=== PATIENT | female | born 1955 | race Caucasian/White ===

== ENCOUNTER 2017-11-04 20:35 | Emergency (ER) | payer MEDICAID ==
[2017-11-04 21:23] LABS: SQUAMOUS EPITHIAL 4 /hpf (0-5); URINE BACTERIA MOD (<OCC); URINE BILIRUBIN NEGATIVE (NEGATIVE); URINE BLOOD NEGATIVE (NEGATIVE); URINE CLARITY Hazy (Clear); URINE COLOR Yellow (YELLOW); URINE GLUCOSE (UA) 2+ mg/dL (Normal); URINE LEUKOCYTE ESTERASE 3+ Leu/uL (Negative); URINE NITRATE NEGATIVE (NEGATIVE); URINE PROTEIN NEGATIVE (NEGATIVE); URINE UROBILINOGEN NORMAL mg/dL (0.2-1.0)
--- NOTE | 2017-11-04 21:36 | C.PDOC ---
History Of Present Illness 62 year old female with a PMHx of diverticulitis, diabetes, HTN and surgical Hx of presents to the ER with daughter with a complaint of lower abdominal pain worse at the LLQ area that has been gradually worsening over the past 4-5 days; associated with an episode of fever yesterday and dysuria. Patient states the pain feels similar to her past exacerbations of diverticulitis and notes her last episode was approximately 2 years ago. Denies nausea, vomiting, or diarrhea. Chief Complaint (Nursing): Abdominal Pain History Per: Patient History/Exam Limitations: no limitations Onset/Duration Of Symptoms: Days Current Symptoms Are (Timing): Still Present Location Of Pain/Discomfort: RLQ, LLQ (Worse), Suprapubic Radiation Of Pain To:: None Quality Of Discomfort: Unable To Describe Associated Symptoms: Urinary Symptoms (Dysuria) Exacerbating Factors: None Alleviating Factors: None Recent travel outside of the [place]: No Past Medical History Reviewed: Historical Data, Nursing Documentation, Vital Signs Vital Signs: Last Vital Signs Temp 98.0 F 11/04/17 22:46 Pulse 85 11/04/17 22:46 Resp 16 11/04/17 22:46 BP 136/89 11/04/17 22:46 Pulse Ox 96 11/04/17 22:46 - Medical History PMH: Diabetes, Diverticulitis, HTN Family History: States: Unknown Family Hx - Social History Hx Tobacco Use: No Hx Alcohol Use: No Hx Substance Use: No - Immunization History Hx Tetanus Toxoid Vaccination: No Hx Influenza Vaccination: No Hx Pneumococcal Vaccination: No Review Of Systems Cardiovascular: Negative for: Chest Pain, Palpitations Respiratory: Negative for: Shortness of Breath Gastrointestinal: Positive for: Abdominal Pain. Negative for: Nausea, Vomiting , Diarrhea Genitourinary: Positive for: Dysuria Physical Exam - Physical Exam Appears: Non-toxic Skin: Normal Color, Warm, Dry Head: Atraumatic, Normacephalic Eye(s): bilateral: Normal Inspection Oral Mucosa: Moist Neck: Normal, Supple Chest: Symmetrical, No Tenderness Cardiovascular: Rhythm Regular Respiratory: Normal Breath Sounds, No Rales, No Rhonchi, No Wheezing Gastrointestinal/Abdominal: Soft, Tenderness (LLQ), No Organomegaly, No Distention, Guarding, No Rebound, No Hernia Neurological/Psych: Oriented x3, Normal Speech ED Course And Treatment - Laboratory Results Result Diagrams: 11/04/17 21:44 11/04/17 21:44 O2 Sat by Pulse Oximetry: 98 (Room air) Pulse Ox Interpretation: Normal Medical Decision Making Medical Decision Making: Impression: Exacerbation of diverticulitis. Will check blood work and urinalysis.We will treat for both conditions with Augmentin Urine positive for UTI. Disposition - Disposition Referrals: [facility] [Outside] Disposition: HOME/ ROUTINE Disposition Time: 00:45 Condition: GOOD Additional Instructions: see PMD in 2 days for reassessment Prescriptions: Amoxicillin/Clavulanate [Augmentin 875 MG-125 MG] 1 tab PO BID #20 tab Phenazopyridine HCl [Pyridium] 100 mg PO TID #6 tablet Instructions: Diverticulitis (ED), Urinary Tract Infection in Women (ED) Forms: Gen Discharge Inst Romanian, [facility] (Anguillan) Print Language: POLISH - Clinical Impression Clinical Impression: Diverticulitis, UTI (urinary tract infection) - Scribe Statement The provider has reviewed the documentation as recorded by the Scribyaneli Cole All medical record entries made by the Lilianaibyaneli were at my direction and personally dictated by me. I have reviewed the chart and agree that the record accurately reflects my personal performance of the history, physical exam, medical decision making, and the department course for this patient. I have also personally directed, reviewed, and agree with the discharge instructions and disposition.
[2017-11-04 21:46] LABS: BASO # 0.1 K/uL (0.0-0.2); BASO % 0.6 % (0.0-2.0); EOS # 0.1 K/uL (0.0-0.7); EOS % 1.2 % (0.0-4.0); HEMOGLOBIN 12.1 g/dL (11.0-16.0); LYMPH # 3.3 K/uL (1.0-4.3); LYMPH % 29.4 % (20.0-40.0); MEAN CORPUSCULAR HEMOGLOBIN 29.7 pg (27.0-31.0); MEAN CORPUSCULAR HGB CONC 34.1 g/dL (33.0-37.0); MEAN PLATELET VOLUME 8.2 fL (7.2-11.7); MONO # 0.8 K/uL (0.0-0.8); MONO % 7.4 % (0.0-10.0); NEUT # 6.9 K/uL (1.8-7.0); NEUT % 61.4 % (50.0-75.0); RBC 4.09 Mil/uL (3.80-5.20); RED CELL DISTRIBUTION WIDTH 13.7 % (11.5-14.5); WHITE BLOOD COUNT 11.2 K/uL (4.8-10.8)
[2017-11-04 21:58] LABS: ALBUMIN 3.7 g/dL (3.5-5.0); BLOOD UREA NITROGEN 14 mg/dL (7-17); GFR AFRICAN-AMERICAN > 60; GFR NON-AFRICAN AMERICAN > 60
[2017-11-04 21:59] LABS: ALB/GLOB RATIO 1.3 (1.0-2.1); ALT/SGPT 12 U/L (9-52); AST/SGOT 13 U/L (14-36)
[2017-11-04 22:47] VITALS: BP 136/89; PULSE 85; RESP 16; TEMP 98
[2017-11-05 00:46] VITALS: O2SAT 98
== END 2017-11-04 22:46 | disposition home or self-care (01) ==
LOC: C.ER 20:35
DX: K57.92 Diverticulitis of intestine, part unspecified, without perforation or abscess without bleeding (principal); N39.0 Urinary tract infection, site not specified; E11.9 Type 2 diabetes mellitus without complications; I10 Essential (primary) hypertension

== ENCOUNTER 2018-11-25 19:06 | Emergency (ER) | payer MEDICAID ==
[2018-11-25 19:07] VITALS: BMI 30.1
[2018-11-25 19:20] VITALS: BP 123/84; PULSE 79; TEMP 98.6; O2SAT 97
--- NOTE | 2018-11-25 20:25 | C.PDOC ---
History Of Present Illness 63 year old female presents to the emergency department with complaints of generalized body aches, cough, fever, chills, headache, sore throat for the last two days. Patient states that she took Advil and Robitussin with no relief of symptoms. Patient denies chest pain and shortness of breath. HPI: Influenza Time Seen by Provider: 11/25/18 19:44 Chief Complaint: Flu-like Symptoms History Per: Patient Exam Limitations: no limitations Onset/Duration Of Symptoms: Days (2) Symptoms include: fever, headache, bodyaches, sore throat, cough. denies: chest pain, difficulty breathing Past Medical History Vital Signs: Last Vital Signs Temp 98.6 F 11/25/18 19:16 Pulse 79 11/25/18 19:16 Resp 18 11/25/18 19:16 BP 123/84 11/25/18 19:16 Pulse Ox 97 11/25/18 19:16 - Medical History PMH: Diabetes, Diverticulitis, HTN Surgical History: No Surg Hx Family History: States: No Known Family Hx - Social History Hx Tobacco Use: No Hx Alcohol Use: No Hx Substance Use: No - Immunization History Hx Tetanus Toxoid Vaccination: No Hx Influenza Vaccination: Yes Hx Pneumococcal Vaccination: No Review Of Systems Except As Marked, All Systems Reviewed And Found Negative. Constitutional: Positive for: Fever, Chills ENT: Positive for: Throat Pain Respiratory: Positive for: Cough Musculoskeletal: Positive for: Other (body aches) Neurological: Positive for: Headache Physical Exam - Physical Exam Appears: Non-toxic, No Acute Distress Skin: Normal Color, Warm, Dry Head: Atraumatic, Normacephalic Eye(s): bilateral: Normal Inspection, PERRL, EOMI Throat: Normal, No Erythema Neck: Normal, Supple Chest: Symmetrical, No Tenderness Cardiovascular: Rhythm Regular, No Murmur Respiratory: Normal Breath Sounds, No Rales, No Rhonchi, No Wheezing Gastrointestinal/Abdominal: Soft, No Tenderness, No Guarding, No Rebound Neurological/Psych: Oriented x3, Normal Speech, Normal Cognition - ECG O2 Sat by Pulse Oximetry: 97 (RA) Pulse Ox Interpretation: Normal - Progress ED Course And Treament: Plan: Motrin 600mg PO Tamiflu 75mg PO Patient re-evaluated and found to be in no distress,VSS, pt interacting with daughter at bedside, sx most likely due to flu. Pt advised to follwo up. Disposition - Disposition Disposition: HOME/ ROUTINE Disposition Time: 20:15 Condition: STABLE Additional Instructions: Please follow up with PMD Take medications as directed Increase PO fluids Return to ER if difficulty breathing, cjhest pain, vomiting,not taking fluids or worse Prescriptions: Benzonatate [Tessalon Perles] 200 mg PO TID #14 sgl Cetirizine HCl [Zyrtec] 10 mg PO DAILY #14 capsule Ibuprofen [Motrin] 600 mg PO Q6H #30 tab Oseltamivir Cap [Tamiflu] 75 mg PO BID #10 cap Instructions: Flu, Adult (DC) Forms: [facility] (Mauritian) - Clinical Impression Clinical Impression: Influenza-like illness - PA / MONITORING TECH / Resident Statement MD/DO has reviewed & agrees with the documentation as recorded. - Scribe Statement The provider has reviewed the documentation as recorded by the Scribe (Alex Callejas) All medical record entries made by the Scribe were at my direction and personally dictated by me. I have reviewed the chart and agree that the record accurately reflects my personal performance of the history, physical exam, medical decision making, and the department course for this patient. I have also personally directed, reviewed, and agree with the discharge instructions and disposition.
[2018-11-25 20:31] VITALS: RESP 20
== END 2018-11-25 20:30 | disposition home or self-care (01) ==
LOC: C.ER 19:06
DX: J11.1 Influenza due to unidentified influenza virus with other respiratory manifestations (principal); E11.9 Type 2 diabetes mellitus without complications; I10 Essential (primary) hypertension